=== PATIENT | female | born 1975 | race Two or more races ===

== ENCOUNTER 2016-10-28 05:40 | Day surgery (SDC) | payer BC, MEDICAID ==
[2016-08-11 12:01] VITALS: BMI 23.5
[2016-10-27 09:41] VITALS: BMI 26.5
[~2016-10-28] VITALS: Ht 175.3 cm; Wt 74.5 kg
[2016-10-28 07:01] VITALS: Ht 175.3 cm; Wt 74.5 kg
[2016-10-28 07:02] VITALS: BP 96/64; PULSE 72; RESP 18
[2016-10-28] MEDS ORDERED: LIDOCAINE 1% (MPF) 30 ML INJ ONE (08:35)
[2016-10-28] MEDS ORDERED: BUPIVACAINE 0.25%/EPI (SDV) 30 ML INJ ONE (08:35)
[2016-10-28 09:04] VITALS: BP 107/62; PULSE 66; RESP 10
[2016-10-28 09:09] VITALS: BP 105/65; PULSE 66; RESP 11
[2016-10-28 09:14] VITALS: BP 103/65; PULSE 68; RESP 15
[2016-10-28 09:30] VITALS: BP 104/63; PULSE 57; RESP 16
--- NOTE | 2016-10-28 10:34 | OPR ---
DATE OF OPERATION: 10/28/2016 PREOPERATIVE DIAGNOSIS: Subcutaneous nodule right upper extremity. PROCEDURE: Excision. POSTOPERATIVE DIAGNOSIS: Benign probable sebaceous cyst, pathology pending. SURGEON: Merline Romero MD ANESTHESIA: Local plus monitored anesthesia care. ANESTHESIOLOGIST: Leonela Grimaldo MD OPERATIVE REPORT: The patient was placed in the supine position and the right upper extremity was p repped and draped. The nodule was just in the subcutaneous tissues below the biceps in the midline. This area was infiltrated with 4 mL of an equal parts mixture of 1% lidocaine with epinephrine and 0.25% Marcaine with epinephrine. A 2 cm vertical skin incision was made and carried down to the no dule which was well circumscribed. It was dissected from surrounding tissues using careful blunt di ssection delivered intact. This nodule was submitted. Subcutaneous was closed with 3-0 Vicryl and s kin closed with running 4-0 subcuticular Vicryl. Operative blood loss less than 1 mL. Sponge and n eedle count reported as correct and the patient tolerated the procedure well and without incident or complication. Dictated By: MERLINE MCKEON/ANDRE Conf#: [id number] DID#: [id number]
== END 2016-10-28 09:52 | disposition home or self-care (01) ==
LOC: SDS 05:40
PROVIDERS: ATTEND Surgery
DX: L72.3 Sebaceous cyst (principal)
CPT/HCPCS: 11402; 88304; Z7512; Z7610